=== PATIENT | female | born 1975 | race Caucasian/White ===

== ENCOUNTER 2019-12-12 09:38 | Emergency (ER) | payer SELFPAY ==
[~2019-12-12] VITALS: Ht 162.6 cm; Wt 68.2 kg
[2019-12-12 09:53] VITALS: BP 155/97
[2019-12-12] MEDS ORDERED: LIDOCAINE-MPF 1%, 5ML ONE ×2 (09:59→10:22)
--- NOTE | 2019-12-12 10:02 | NUR ---
SAMAR RPT TO JOSE DAVID TODD
--- NOTE | 2019-12-12 10:02 | NUR ---
BREAK RN: PT AMBULATORY FROM LOBBY TO ROOM FOR TRIAGE.
--- NOTE | 2019-12-12 10:04 | NUR ---
RECEIVED REPORT FROM JOSE DAVID STEINER. PT RESTING ON LUISA. GALI. MONITORS APPLIED.
--- NOTE | 2019-12-12 10:04 | NUR ---
DOLLY WOLFE AT BEDSIDE FOR EVAL. I&D SET UP IN ROOM.
[2019-12-12] MEDS ORDERED: CEFTRIAXONE 1,000 MG ONE (10:22)
[2019-12-12] MEDS ORDERED: DIPH,PERTUSS(ACELL),TET VAC/PF 0.5 ML IM-VACC ONE ×2 (10:22→10:30)
[2019-12-12] MEDS ORDERED: CEFTRIAXONE 1,000 MG IM ONE (10:30)
[2019-12-12] MEDS ORDERED: L.E.T SOLUTION TP ONE ×2 (10:30→10:32)
[2019-12-12] MEDS ORDERED: CEFTRIAXONE PMX 1GM/50ML 50 ML IV ONE (10:30)
--- NOTE | 2019-12-12 11:40 | NUR ---
DOLLY WOLFE AT BEDSIDE PERFORMING I&D.
--- NOTE | 2019-12-12 11:53 | NUR ---
REPORT GIVEN TO JOSE DAVID PARRISH.
[2019-12-12] MEDS ORDERED: HYDROcodone/APAP 5/325 TABLET ONE (11:54)
--- NOTE | 2019-12-12 11:58 | NUR ---
first ccontact with pt for dispo. norco per order. instruct and rx, pt has ride. verbalizes understanding of instruct and fu to return to er in 24-48hr, sooner if worse.
[2019-12-12] MEDS ORDERED: HYDROcodone/APAP 5/325 TABLET PO ONE (12:00)
== END 2019-12-12 12:01 | disposition home or self-care (01) ==
LOC: ED 10:10
DX: L02.01 Cutaneous abscess of face (principal); F17.200 Nicotine dependence, unspecified, uncomplicated
CPT/HCPCS: 10060; 70200; 90471; 90715; 96372; 99284; J0696

== ENCOUNTER 2019-12-14 17:14 | Emergency (ER) | payer MEDICAID ==
[~2019-12-14] VITALS: Ht 162.6 cm; Wt 72.6 kg
[2019-12-14] MEDS ORDERED: CEFTRIAXONE 1,000 MG ONE (17:57)
[2019-12-14] MEDS ORDERED: LIDOCAINE-MPF 1%, 5ML ONE ×2 (17:57→18:30)
[2019-12-14] MEDS ORDERED: CEFTRIAXONE 1,000 MG IM ONE (18:00)
--- NOTE | 2019-12-14 18:28 | NUR ---
ANTIBIOTICS GIVEN PER ORDERS. ERP WAS IN FOR RECHECK. WOUND DRAINING MODERATE AMOUNT YELLOW FLUID. ERP TO DO I&D.
--- NOTE | 2019-12-14 18:29 | NUR ---
PT STATES SHE WAS PRESCRIBED ANTIBIOTICS WHEN SHE GOT THE WOUND, BUT SHE WASN'T ABLE TO PAY FOR THE PRESCRIPTION.
[2019-12-14] MEDS ORDERED: LIDOCAINE-MPF 1%, 5ML INFIL ONE ×2 (18:30→19:00)
--- NOTE | 2019-12-14 18:52 | NUR ---
REPORTED TO [facility].
[2019-12-14 19:20] VITALS: BP 115/77
== END 2019-12-14 20:01 | disposition home or self-care (01) ==
LOC: ED 18:32
DX: L02.01 Cutaneous abscess of face (principal); F17.200 Nicotine dependence, unspecified, uncomplicated
CPT/HCPCS: 10060; 96372; 99283; J0696